=== PATIENT | male | born 1950 ===

== ENCOUNTER 2017-06-06 10:30 | Outpatient (RCR) | payer BC | END 2017-06-18 | disposition home or self-care (01) | LOC: PTY 10:30 | PROVIDERS: ATTEND Internal Medicine | DX: S76.311D Strain of muscle, fascia and tendon of the posterior muscle group at thigh level, right thigh, subsequent encounter (principal) ==

== ENCOUNTER 2017-07-26 16:30 | Outpatient (RCR) | payer BC | END 2017-08-18 | disposition home or self-care (01) | LOC: PTY 16:30 | PROVIDERS: ATTEND Internal Medicine | DX: S76.311D Strain of muscle, fascia and tendon of the posterior muscle group at thigh level, right thigh, subsequent encounter (principal) ==